=== PATIENT | male | born 1965 | race Caucasian/White ===

== ENCOUNTER 2022-05-14 12:23 | Outpatient (CLI) | payer OTHER ==
--- NOTE | 2022-05-14 14:22 | Ultrasound Report ---
PROCEDURE: Retroperitoneal INDICATIONS: RENAL FAILURE TECHNIQUE: Real-time scanning was performed of the kidneys and bladder, with image documentation. COMPARISON: None. FINDINGS: Kidneys: Kidneys are normal in size. Right kidney measures 10.7 cm long; left kidney measures 11.3 cm long. Right renal cortical thickness is 1.3 cm; left renal cortical thickness is 1.4 cm. No willi d masses, hydronephrosis, or nephrolithiasis. Small simple appearing right renal cyst measuring 0.7 c m. Simple left renal cyst measuring 1.2 cm. Bladder: Pre-void bladder volume is 312 mL. Post-void residual is 59 mL. Pre-void images demonstra te no intraluminal stones. Bladder wall has a trabeculated appearance. On pre-void images, both urete ral jets are noted with color Doppler interrogation. (Of note, ureteral jets may not be detectable i n up to 25% of cases due to insufficient differences in specific gravity between ureteral and bladder urine). Miscellaneous: No free abdominal fluid. Prostate measures 6 x 5.9 x 4.6 cm. Incidental gallbladder w all polyps. A larger polyp measuring 0.5 cm. Probable gallbladder sludge. IMPRESSION: 1. No hydronephrosis. 2. Bladder wall has a trabeculated appearance. Post void residual 59 cc. 3. Prostatomegaly. 4. Incidental gallbladder polyps. Larger polyps seen measuring is 0.5 cm. No further follow-up for th is polyp is required. Gallbladder sludge. Reviewed by: Phil Toledo MD on 05/14/2022 2:21 PM PST Approved by: Phil Toledo MD on 05/14/2022 2:21 PM PST Station ID: [id number]
== END 2022-05-14 12:24 | disposition home or self-care (01) ==
LOC: DI 12:23
PROVIDERS: ATTEND Internal Medicine Nephrology
DX: N17.9 Acute kidney failure, unspecified (principal); N40.0 Benign prostatic hyperplasia without lower urinary tract symptoms

== ENCOUNTER 2022-06-18 13:29 | Outpatient (CLI) | payer OTHER ==
--- NOTE | 2022-06-18 20:23 | XRAY Report ---
PROCEDURE: Chest 2 View X-Ray INDICATIONS: STAGE 5 CKD TECHNIQUE: 2 views of the chest were acquired. COMPARISON: X-ray chest report, 11/17/2011. FINDINGS: Surgical changes and devices: None. Lungs and pleura: Moderate left pleural effusion and left basilar compression atelectasis. On increa sed pulmonary vascularity compatible with volume overload. No pneumothorax. Mediastinum: Mediastinal contours are normal. Heart size is normal. Bones and chest wall: No suspicious bony abnormalities. Soft tissues appear unremarkable. IMPRESSION: 1. Moderate left effusion. 2. Increased pulmonary vascularity likely secondary to volume overload. Reviewed by: Tanisha Solo MD on 06/18/2022 8:22 PM PST Approved by: Tanisha Solo MD on 06/18/2022 8:22 PM PST Station ID: [id number]
== END 2022-06-18 13:30 | disposition home or self-care (01) ==
LOC: DI 13:29
PROVIDERS: ATTEND Internal Medicine Nephrology
DX: N18.5 Chronic kidney disease, stage 5 (principal); J90 Pleural effusion, not elsewhere classified; I28.8 Other diseases of pulmonary vessels

== ENCOUNTER 2023-05-28 11:38 | Outpatient (CLI) | payer MEDICARE, BC | END 2023-05-28 23:59 | disposition critical access hospital (66) | LOC: EMS 11:38 | DX: M25.552 Pain in left hip (principal); W01.0XXA Fall on same level from slipping, tripping and stumbling without subsequent striking against object, initial encounter; Y92.008 Other place in unspecified non-institutional (private) residence as the place of occurrence of the external cause | CPT/HCPCS: A0425; A0429 ==

== ENCOUNTER 2023-05-28 11:58 | Inpatient (IN) | payer MEDICARE, BC ==
[2023-05-28] MEDS ORDERED: MORPHINE 2 MG/ML CARPUJECT IVP STA (12:15)
[2023-05-28 12:42] LABS: BASOPHILS # (AUTO) 0.1 10^3/uL (0.0-0.1); EOSINOPHILS # (AUTO) 0.5 10^3/uL (0.0-0.7); EOSINOPHILS % (AUTO) 7.4 %; HCT - HEMATOCRIT 34.5 % (42.0-52.0); HGB - HEMOGLOBIN 11.2 g/dL (14.0-18.0); LYMPHOCYTES # (AUTO) 0.7 10^3/uL (1.5-3.5); LYMPHOCYTES % (AUTO) 11.1 %; MEAN CORPUSCULAR HEMOGLOBIN 29.2 pg (27.0-31.0); MEAN CORPUSCULAR HGB CONC 32.5 g/dL (32.0-36.0); MEAN CORPUSCULAR VOLUME 89.8 fL (80.0-94.0); MEAN PLATELET VOLUME 9.9 fL (7.4-11.4); MONOCYTES # (AUTO) 0.5 10^3/uL (0.0-1.0); MONOCYTES % (AUTO) 7.9 %; NEUTROPHILS # (AUTO) 4.4 10^3/uL (1.5-6.6); NEUTROPHILS % (AUTO) 72.1 %; PLT - PLATELET COUNT 322 10^3/uL (130-450); RED BLOOD COUNT 3.84 10^6/uL (4.70-6.10); RED CELL DISTRIBUTION WIDTH 15.4 % (12.0-15.0); WHITE BLOOD COUNT 6.1 x10^3/uL (4.8-10.8)
--- NOTE | 2023-05-28 12:43 | XRAY Report ---
PROCEDURE: Hip w/Pelvis 2-3V LT INDICATIONS: fall/pain TECHNIQUE: An AP view the pelvis and a frog-leg lateral views of of the hip were acquired. COMPARISON: None. FINDINGS: Bones: Mildly displaced trochanteric fracture of the left hip. Moderate left hip degenerative arthri tis. No suspicious bony lesions. Soft tissues: No suspicious soft tissue calcifications or masses. IMPRESSION: Mildly displaced trochanteric fracture of the left hip. Reviewed by: Mayur Amaya MD on 05/28/2023 12:42 PM PST Approved by: Mayur Amaya MD on 05/28/2023 12:42 PM PST Station ID: [id number]
[2023-05-28 13:01] LABS: ALBUMIN 3.1 g/dL (3.2-5.5); BILIRUBIN,TOTAL 0.3 mg/dL (0.2-1.0); CALCIUM 8.6 mg/dL (8.5-10.3); CREATININE 9.6 mg/dL (0.6-1.3); POTASSIUM 3.4 mmol/L (3.5-4.5); TOTAL PROTEIN 6.1 g/dL (6.4-8.9)
--- NOTE | 2023-05-28 13:29 | ED Physician Documentation ---
PD HPI LOWER EXT INJURY - Stated complaint Stated Complaint: L HIP/GLF - Chief complaint Chief Complaint: Trauma Ext - History obtained from History obtained from: Patient - Additional information Additional information: Patient is a 58-year-old male with a history of end-stage renal disease on peritoneal dialysis presenting for evaluation of left hip pain. The patient states that just prior to arrival he had a mechanical trip and fall over a rug at home and fell landing on his left hip. He did not hit his head. He denies LOC. He denies any symptoms prior to the fall and states that he was simply tripping over a rug. He does do his own dialysis at home daily. He does not take a blood thinner. His last p.o. intake was 8:00 this morning with a granola bar and coffee. Review of Systems Constitutional: denies: Fever Cardiac: denies: Chest pain / pressure Respiratory: denies: Dyspnea GI: denies: Abdominal Pain Musculoskeletal: reports: Extremity pain Neurologic: denies: Head injury PD PAST MEDICAL HISTORY - Past Medical History Past Medical History: Yes Cardiovascular: Hypertension Endocrine/Autoimmune: Type 2 diabetes - Past Surgical History Past Surgical History: No - Present Medications Home Medications: Ambulatory Orders Medication Instructions Recorded Confirmed Insulin Aspart (Vial) [NovoLOG] 3 - 14 units SQ BIDWM 05/30/15 05/28/23 Lisinopril 40 mg PO BID 05/30/15 05/28/23 Doxazosin [Cardura] 2 mg PO DAILY 05/28/23 05/28/23 Insulin NPH Human Isophane 15 unit SUBQ . DAILY AM 05/28/23 05/28/23 [Novolin N Flexpen] Insulin NPH Human Isophane 40 unit SUBQ .DAILY PM 05/28/23 05/28/23 [Novolin N Flexpen] amLODIPine [Norvasc] 10 mg PO DAILY 05/28/23 05/28/23 carvediloL [Coreg] 25 mg PO DAILY 05/28/23 05/28/23 - Allergies Allergies/Adverse Reactions: Allergies Allergy/AdvReac Type Severity Reaction Status Date / Time sitagliptin phosphate * Allergy Anaphylaxis Verified 05/28/23 12:09 [From Januvia] cefuroxime axetil * AdvReac Headache Verified 05/28/23 12:09 [From Ceftin] - Social History Does the pt smoke?: No Smoking Status: Never smoker Does the pt drink ETOH?: No Does the pt have substance abuse?: No - Immunizations Immunizations are current?: Yes PD ED PE NORMAL - General General: Alert and oriented X 3, No acute distress, Well developed/nourished - HEENT HEENT: Atraumatic, Moist mucous membranes, Pharynx benign - Neck Neck: Supple, no meningeal sign - Cardiac Cardiac: RRR, Strong equal pulses - Respiratory Respiratory: No respiratory distress, Clear bilaterally - Abdomen Abdomen: Soft, Non tender, Non distended - Extremities Extremities: Other (Bilateral lower extremity edema, erythema to bilateral legs, left leg is shortened and externally rotated, left hip head tenderness, distal pulses intact) - Neuro Neuro: Alert and oriented X 3, No motor deficit, No sensory deficit, Normal speech Results - Vitals Vitals: Vital Signs - 24 hr 05/28/23 05/28/23 12:05 14:09 Temperature 36.3 C L Heart Rate 71 70 Respiratory 14 16 Rate Blood Pressure 185/79 H 171/80 H O2 Saturation 100 98 Oxygen O2 Source Room air - EKG (time done) 1414 EKG releavant findings:: EKG personally interpreted by author of this note. Relevant findings are: Rate 69, normal sinus rhythm, no STEMI - Labs Labs: Laboratory Tests 05/28/23 05/28/23 12:35 12:35 WBC 6.1 RBC 3.84 L Hgb 11.2 L Hct 34.5 L MCV 89.8 MCH 29.2 MCHC 32.5 RDW 15.4 H Plt Count 322 MPV 9.9 Neut # (Auto) 4.4 Lymph # (Auto) 0.7 L [place] # (Auto) 0.5 Eos # (Auto) 0.5 Baso # (Auto) 0.1 Absolute Nucleated RBC 0.00 Nucleated RBC % 0.0 Sodium 133 L Potassium 3.4 L Chloride 92 L Carbon Dioxide 30 Anion Gap 11.0 BUN 50 H Creatinine 9.6 H* Estimated GFR (MDRD) 6 L Glucose 112 H Calcium 8.6 Total Bilirubin 0.3 AST 10 ALT 11 Alkaline Phosphatase 95 Total Protein 6.1 L Albumin 3.1 L Globulin 3.0 Albumin/Globulin Ratio 1.0 PD Medical Decision Making - ED course Complexity details: reviewed results, re-evaluated patient, d/w patient, d/w family ED course: Patient is a 58-year-old male presenting for evaluation of left hip pain after mechanical fall which occurred from tripping over a rug. No head injury. Does not take a blood thinner. Patient does have shortening of the left leg. Extremity appears to be well-perfused. X-ray which I reviewed shows a left intertrochanteric fracture. Given his history of peritoneal dialysis I did review the case with admitting hospitalist Dr. Hadley. She states that we would need to confirm with nursing managers that we will be able to accommodate this patient. ED transportation operations manager spoke with hospital nursing administration and we are able to accommodate this patient. I also reviewed the case with Dr. Billings who will plan to take the patient for surgery later this afternoon. Request hospitalist for admission. Discussed again with Dr. Hadley will admit the patient for further management. Patient was given a dose of IV morphine with improvement in his pain. Departure - Departure Disposition: [facility] DC/[facility] Clinical Impression: Closed left hip fracture, ESRD on peritoneal dialysis Condition: Stable Discharge Date/Time: 05/28/23 15:32
[2023-05-28] MEDS ORDERED: ONDANSETRON 4 MG/2 ML VIAL IVP PRN (14:26)
[2023-05-28] MEDS ORDERED: SODIUM CHLORIDE FLUSH 0.9% 10 ML SYRINGE IVP PRN (14:26)
[2023-05-28] MEDS ORDERED: ACETAMINOPHEN 325 MG TABLET PO PRN (14:26)
--- NOTE | 2023-05-28 14:35 | HISTORY & PHYSICAL EXAMINATION ---
Chief Complaint - Chief Complaint Chief Complaint: Hip pain after fall History of Present Illness - Admitted From Admitted From:: ED - History Obtained From History obtained from: ED provider and the pt - History of Present Illness HPI Comment/Other: This is a 49-year-old male with a history of diabetes and renal failure which progressed to him needing peritoneal dialysis starting August 2022. Today while walking, he tripped on a corner of a rug and fell on his left hip and developed pain. He was brought to the emergency room. Workup shows that he has a left hip fracture. Labs are relatively normal except creat of 9.6. The ER Dr contacted Ortho who said he would do hip surgery, if this peritoneal pt can be accepted here at this [facility]. Patient denies any cardiac or cerebrovascular history. He is on insulin and diabetic diet. For his peritoneal dialysis, he dwells overnight starting at 9:30 pm and then uses a dextran spacer in his abdomen during the day. 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 Living arrangement: At home Living Situation: With spouse/s.o. Social History Notes: He does not smoke and never smoked. He drinks no alcohol. He uses no illicit drugs. 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 - Substance History Use: Uses substance without health or social issues: NONE Meds/Allgy - Home Medications Home Medications: Ambulatory Orders Medication Instructions Recorded Confirmed Insulin Aspart (Vial) [NovoLOG] 3 - 14 units SQ BIDWM 05/30/15 05/28/23 Lisinopril 40 mg PO BID 05/30/15 05/28/23 Doxazosin [Cardura] 2 mg PO DAILY 05/28/23 05/28/23 Insulin NPH Human Isophane 15 unit SUBQ . DAILY AM 05/28/23 05/28/23 [Novolin N Flexpen] Insulin NPH Human Isophane 40 unit SUBQ .DAILY PM 05/28/23 05/28/23 [Novolin N Flexpen] amLODIPine [Norvasc] 10 mg PO DAILY 05/28/23 05/28/23 carvediloL [Coreg] 25 mg PO DAILY 05/28/23 05/28/23 - Allergies Allergies/Adverse Reactions: Allergies Allergy/AdvReac Type Severity Reaction Status Date / Time sitagliptin phosphate * Allergy Anaphylaxis Verified 05/28/23 12:09 [From Januvia] cefuroxime axetil * AdvReac Headache Verified 05/28/23 12:09 [From Ceftin] Review of Systems - All Other Systems All Other Systems: reports: Reviewed and negative Exam - Vital Signs Reviewed Vital Signs: Yes Vital Signs: Vital Signs x48h Temp Pulse Resp BP Pulse Ox 05/28/23 14:09 70 16 171/80 H 98 05/28/23 12:05 36.3 C L 71 14 185/79 H 100 - Physical Exam General Appearance: positive: No acute distress, Alert Eyes Bilateral: positive: Normal inspection, EOMI ENT: positive: ENT inspection nml, No signs of dehydration Neck: positive: Nml inspection, No JVD Respiratory: positive: No respiratory distress, Breath sounds nml Cardiovascular: positive: Regular rate & rhythm, No murmur Abdomen: positive: Non-tender, No organomegaly, Nml bowel sounds Skin: positive: Warm, Dry Extremities: positive: No pedal edema, Other (L hip is tender) Conclusion/Plan - Problem List (1) Hip fracture Conclusion/Plan: This occurred after a trip and fall at home, there was no near-syncope or syncope. There was no head trauma. Imaging in the ER shows he has a mildly displaced intertrochanteric fracture of the left hip Plan: Pain medications Orthopedic consult and Ortho surgery PT and OT after hip surgery Qualifiers: Laterality: left (2) Pre-operative clearance Conclusion/Plan: This patient's Revised Cardiac Risk Index = 2 points, which is a Class III risk, which gives him a 10.1% chance of having a 30-day risk of , OR or cardiac arrest Plan: A preop chest x-ray was ordered, it was not done in ER Anesthesia needs to do preop evaluation as well (3) DM type 2 (diabetes mellitus, type 2) Conclusion/Plan: The patient is on insulin at home Plan: He is n.p.o. in preparation for his hip surgery. After that he will be started on diabetic diet, sliding scale insulin with fingerstick checks, hypoglycemia protocol Check A1c with a.m. labs (4) Peritoneal dialysis status Conclusion/Plan: Patient does home peritoneal dialysis Plan: I spoke with RN Debora Norris who also spoke to RN Beatriz Morgan, that we may take a patient here, as long as he can do his own peritoneal dialysis. The aER doctor was then informed who told the patient and son at bedside, that he will have to do his own peritoneal dialysis while here and be responsible for all his own dialysate and bags and supplies on his own I then spoke to the pharmacy innovation assistant HARLEY Moreno who confirmed that the patient will need to do all his own peritoneal dialysis procedure (5) Hypertension Conclusion/Plan: Plan: The medication list is reconciled by pharmacy and all his BP meds will be resumed to use while here, holding parameters will be placed for when to not give those meds Qualifiers: Hypertension type: essential hypertension - Lab Results Fish Bones: 05/28/23 12:35 05/28/23 12:35 - Diagnostic Imaging Results Diagnostic Imaging Results: positive: Final report reviewed - Other Other Results/Comments: Attestation: The patient is expected to be hospitalized for greater than 2 midnights and is expected to be discharged or transferred to another facility within 96 hours: Yes.
[2023-05-28] MEDS ORDERED: SODIUM CHLORIDE 0.9% 1,000 ML IV SCH (15:00)
[2023-05-28] MEDS ORDERED: BUPIVACAINE 0.25% PF 30 ML VIAL ONE (15:02)
--- NOTE | 2023-05-28 15:06 | XRAY Report ---
PROCEDURE: Chest 1V INDICATIONS: Pre-op eval Hip fx, Hx HTN, DM, CKD TECHNIQUE: One view of the chest was acquired. COMPARISON: 06/18/2022 FINDINGS: Surgical changes and devices: None. Lungs and pleura: Interval improvement. Previous moderate left pleural effusion. Minimal or no left pleural fluid remains. Lungs are clear. Mediastinum: Mediastinal contours appear normal. Cardiomegaly. Bones and chest wall: No suspicious bony lesions. Overlying soft tissues appear unremarkable. IMPRESSION: 1. Cardiomegaly. 2. Significant improvement or resolution of left pleural effusion. 3. No gross infiltrates. Reviewed by: Mayur Amaya MD on 05/28/2023 3:04 PM PST Approved by: Mayur Amaya MD on 05/28/2023 3:04 PM PST Station ID: [id number]
[2023-05-28] MEDS: SODIUM CHLORIDE FLUSH 0.9% 10 ML SYRINGE IVP SCH (15:49)
[2023-05-28] MEDS: DEXTROSE 5%-0.9% NACL 1,000 ML IV SCH (15:50)
[2023-05-28] MEDS: MORPHINE 2 MG/ML CARPUJECT IVP PRN ×2 (15:53→21:29)
--- NOTE | 2023-05-28 16:36 | CONSULTATION NOTE ---
Referring Provider Consult Date: 05/28/23 History of Present Illness - History of Present Illness HPI Comment/Other: Mr. Bryce Berman is a 58-year-old male diabetic with end-stage renal disease who is being evaluated for a left intertrochanteric hip fracture sustained after a ground-level fall this afternoon. Patient was in his usual state of health when he slipped on a loose rug in his home and fell onto his left hip. Noted immediate pain in his hip region and was unable to stand or weight-bear. Was taken to the emergency room by ambulance where x-rays showed his hip fracture. Patient is an insulin-dependent diabetic and has been on daily nightly peritoneal dialysis for his chronic renal failure. Patient denies of loss of consciousness nausea vomiting or other injuries as a result of his fall. No prior hip fractures. History - Past Medical History Cardiovascular: reports: Hypertension Endocrine/Autoimmune: reports: Type 2 diabetes : reports: Dialysis, Renal insuffiency - Family & Social History Living arrangement: At home - Substance History Use: Uses substance without health or social issues: NONE Meds/Allgy - Home Medications Home Medications: Ambulatory Orders Medication Instructions Recorded Confirmed Insulin Aspart (Vial) [NovoLOG] 3 - 14 units SQ BIDWM 05/30/15 05/28/23 Lisinopril 40 mg PO BID 05/30/15 05/28/23 Doxazosin [Cardura] 2 mg PO DAILY 05/28/23 05/28/23 Insulin NPH Human Isophane 15 unit SUBQ . DAILY AM 05/28/23 05/28/23 [Novolin N Flexpen] Insulin NPH Human Isophane 40 unit SUBQ .DAILY PM 05/28/23 05/28/23 [Novolin N Flexpen] amLODIPine [Norvasc] 10 mg PO DAILY 05/28/23 05/28/23 carvediloL [Coreg] 25 mg PO DAILY 05/28/23 05/28/23 - Allergies Allergies/Adverse Reactions: Allergies Allergy/AdvReac Type Severity Reaction Status Date / Time sitagliptin phosphate * Allergy Anaphylaxis Verified 05/28/23 12:09 [From Januvia] cefuroxime axetil * AdvReac Headache Verified 05/28/23 12:09 [From Ceftin] Exam - Vital Signs Vital Signs: Vital Signs x48h Temp Pulse Pulse Resp BP BP Pulse Ox 05/28/23 15:33 37.1 C 69 16 171/80 H 96 05/28/23 14:09 70 16 171/80 H 98 05/28/23 12:05 36.3 C L 71 14 185/79 H 100 - Physical Exam Comments/Other: Examination: Patient had 2+ tenderness on palpation of the lateral aspect of his left hip. His left leg was slightly shortened and externally rotated. Movement of his hip was painful. Patient moves his toes on command. Sensation. Be grossly intact to light touch. X-rays: X-rays taken in the emergency room shows a minimally displaced inter trochanteric left hip fracture Conclusion and Plan - Lab Results Laboratory Results 05/28/23 12:35: Sodium 133 L, Potassium 3.4 L, Chloride 92 L, Carbon Dioxide 30, Anion Gap 11.0, BUN 50 H, Creatinine 9.6 H*, Estimated GFR (MDRD) 6 L, Glucose 112 H, Calcium 8.6, Total Bilirubin 0.3, AST 10, ALT 11, Alkaline Phosphatase 95, Total Protein 6.1 L, Albumin 3.1 L, Globulin 3.0, Albumin/Globulin Ratio 1.0 05/28/23 12:35: WBC 6.1, RBC 3.84 L, Hgb 11.2 L, Hct 34.5 L, MCV 89.8, MCH 29.2, MCHC 32.5, RDW 15.4 H, Plt Count 322, MPV 9.9, Neut # (Auto) 4.4, Lymph # (Auto) 0.7 L, [place] # (Auto) 0.5, Eos # (Auto) 0.5, Baso # (Auto) 0.1, Absolute Nucleated RBC 0.00, Nucleated RBC % 0.0 - Diagnosis Diagnosis: Closed left intertrochanteric hip fracture - Plan Plan: Patient was admitted to the medical service. He has been cleared medically to proceed with surgical stabilization of his left hip fracture. Has not eaten since early this morning. Have scheduled in for surgery this evening. Will plan on doing short InterTAN nailing of this hip fracture.The risk and benefits of surgery were explained to the patient. I have answered all his questions. He wishes to proceed with surgery as planned. Leg has been marked
--- NOTE | 2023-05-28 17:16 | CONSULTATION NOTE ---
Consultation Report: Called to evaluate patient for hip pinning s/p hip fracture. Patient is on peritoneal dialysis and managed at home. While patient is euvolemic now, it is expected he would have intra-op fluid shifts and would need intraoperative fluids. There would be expected blood loss and a potential for electrolyte imbalances. Even with spinal anesthesia there would be need for fluid management due to sympathectomy. Without nephrology available, if he were to need support, [facility] would not be able to provide that. Recommend transfer to facility with nephrology available.
--- NOTE | 2023-05-28 17:18 | PROVIDER PROGRESS NOTE ---
Hospitalist Cross-cover Note - Cross-Cover Note Cross-Cover Note: I spoke to the orthopedic surgeon and we discussed that the patient is stable, euvolemic and can go to surgery today. Dr. Billings, of orthopedics, called in anesthesia and the OR team. The anesthesia provider on-call, Shemar Kessler, evaluated this patient. She came to talk to me and Dr. Billings together. Anesthesia stated that this patient is too high risk to put under anesthesia here because of fluid shifts that can be hard to manage and unknown what types of anesthetics are not well renally handled. Therefore the patient needs to be transferred to a facility that has a Commercial Loan Analyst, she stated. Plan: The ortho surgery will be canceled The patient will no longer be n.p.o. I will order a diet I will put him on Lovenox for DVT prophylaxis I will start arranging for transfer to a larger facility.
[2023-05-28] MEDS ORDERED: ENOXAPARIN 40 MG/0.4 ML SYRINGE SUBQ SCH (17:20)
--- NOTE | 2023-05-28 17:55 | PHARMACY PROGRESS NOTE ---
- Best Possible Medication History Admit Date and Time: 05/28/23 1426 Processed by: Pharmacy Medication History completed: Yes Patient Interview: Completed Secondary Source(s): Physician records, Pharmacy records, Insurance records As the person ultimately responsible for medication therapy, providers are able to order a medication from an existing home medication list in [facility] via the "Reconcile Routine" prior to Confirmation of that medication by business support administrator. Such practice is discouraged except when the physician, in their clinical judgment, deems that a medical need exists for a medication without regard to previous use.
[2023-05-28] MEDS: lisinopriL 20 MG TABLET PO SCH (21:28)
[2023-05-28] MEDS: carvediloL 12.5 MG TABLET PO SCH (21:29)
[2023-05-28] MEDS: HEPARIN 5,000 UNIT/ML VIAL SUBQ SCH (21:35)
[2023-05-28] MEDS: INSULIN LISPRO 300 UNIT/3 ML PEN SUBQ SCH (21:35)
[2023-05-29] MEDS: SODIUM CHLORIDE FLUSH 0.9% 10 ML SYRINGE IVP SCH ×2 (00:08→11:41)
[2023-05-29] MEDS: MORPHINE 2 MG/ML CARPUJECT IVP PRN ×3 (03:00→13:04)
[2023-05-29] MEDS: DEXTROSE 5%-0.9% NACL 1,000 ML IV SCH (03:04)
[2023-05-29] MEDS: INSULIN LISPRO 300 UNIT/3 ML PEN SUBQ SCH ×2 (07:57→11:37)
[2023-05-29] MEDS ORDERED: [UNRECOGNIZED DRUG - OTHER] SUBQ SCH ×2 (08:00)
[2023-05-29] MEDS ORDERED: INSULIN NPH HUMAN ISOPHANE 100 UNIT/ML SUBQ SCH ×2 (08:00)
[2023-05-29] MEDS ORDERED: INSULN SUBQ SCH ×2 (08:00)
[2023-05-29] MEDS: DOXAZOSIN 1 MG TABLET PO SCH ×2 (08:21→08:30)
[2023-05-29] MEDS: HEPARIN 5,000 UNIT/ML VIAL SUBQ SCH (08:24)
[2023-05-29] MEDS: carvediloL 12.5 MG TABLET PO SCH (08:30)
[2023-05-29] MEDS ORDERED: INSULIN GLARGINE-YFGN 300 UNIT/3 ML PEN SUBQ SCH ×3 (09:00→21:00)
[2023-05-29] MEDS ORDERED: amLODIPine 5 MG TABLET PO SCH (09:00)
[2023-05-29 10:28] LABS: ESTIMATED AVERAGE GLUCOSE 194 mg/dL (70-100); HEMOGLOBIN A1c% 8.4 % (4.27-6.07)
--- NOTE | 2023-05-29 10:31 | Discharge Plan ---
Discharge Plan Problem Reviewed?: Yes Disposition: 02 Transfer Acute Care Hosp Condition: Fair No Smoking: If you smoke, Please STOP! Call for help.
--- NOTE | 2023-05-29 10:52 | DISCHARGE SUMMARY ---
"Discharge Summary Admit Date: 05/28/23 Discharge Date: 05/29/23 Discharging Provider: Dr Vivi Hadley Primary Care Provider: Dr Davion Lopez Code Status: Attempt Resuscitation Condition at Discharge: Fair Discharge Disposition: 02 Transfer Acute Care Hosp Discharge Facility Name: [facility] - DIAGNOSES Admission Diagnoses: (1) Hip fracture Left sided (2) Pre-operative clearance This patient's Revised Cardiac Risk Index = 2 points, which is a Class III risk, which gives him a 10.1% chance of having a 30-day risk of , [place] or cardiac arrest (3) DM type 2 (diabetes mellitus, type 2) (4) Peritoneal dialysis status (5) Hypertension Discharge Diagnoses with Status of Each Condition: (1) Hip fracture, left Surgery was not done here due to #3 (2) Pre-operative clearance He was seen by Hospitalist and by Anesthesia for pre-op clearance (3) At high risk for postoperative complications - Z91.89 Per Anesthesia, he is at excessively high risk to have his surgery done here at a [facility], and needs surgery at a facility with Automatic Drilling Machine Operator on staff. The Hospitalist needed to reach out to various hospitals to have him accepted in transfer (Time spent: 45 minutes). He was transferred in stable condition by BLS ambulance. (4) DM type 2 (diabetes mellitus, type 2) Stable (5) Peritoneal dialysis status Stable (6) CKD Stable (7) Hypertension Stable on meds - HPI History of Present Illness: This is a 49-year-old male with a history of diabetes and renal failure which progressed to him needing peritoneal dialysis starting August 2022. Today while w alking, he tripped on a corner of a rug and fell on his left hip and developed pain. He was brought to the emergency room. Workup shows that he has a left hip fracture. Labs are relatively normal except creat of 9.6. The ER Dr contacted Ortho who said he would do hip surgery, if this peritoneal patient can be [facility]. Patient denies any cardiac or cerebrovascular history. He is on insulin and diabetic diet. For his peritoneal dialysis, he dwells overnight starting at 9:30 pm and then uses Dextran in his abdomen during the day. His CODE STATUS is Full Code - CONSULTS | PROCEDURES Consultations: Ortho, Anesthesia - HOSPITAL COURSE Hospital Course: This Hospitalist spoke to the Orthopedic surgeon and we discussed that the patient is stable, euvolemic and can go to surgery today. Dr. Billings, of Orthopedics, called in Anesthesia and the OR team with plan to go to PO at 1800. The Anesthesia provider on-call, Shemar Kessler, evaluated this patient. Anesthesia stated that this patient is too high risk to put under anesthesia here because of fluid shifts that can be hard to manage and unknown what types of anesthetics are not well renally handled. Therefore the patient needs to be transferred to a facility that has a Automatic Drilling Machine Operator, she stated. The orthopedic surgery was canceled. The patient was taken off of n.p.o. status, a diabetic diet was ordered. He was started on Heparin sq BID for DVT prophylaxis. Arrangements were made for transferring him to a larger facility. - ALLERGIES Allergies/Adverse Reactions: Allergies Allergy/AdvReac Type Severity Reaction Status Date / Time sitagliptin phosphate * Allergy Anaphylaxis Verified 05/28/23 12:09 [From Januvia] cefuroxime axetil * AdvReac Headache Verified 05/28/23 12:09 [From Ceftin] - MEDICATIONS Home Medications: Ambulatory Orders Medication Instructions Recorded Confirmed Insulin Aspart (Vial) [NovoLOG] 3 - 14 units SQ BIDWM 05/30/15 05/28/23 Lisinopril 40 mg PO DAILY 05/30/15 05/28/23 Calcium Acetate [Phoslo] 667 mg PO TIDWM 05/28/23 05/28/23 Insulin NPH Human Isophane 15 unit SUBQ . DAILY AM 05/28/23 05/28/23 [Novolin N Flexpen] Insulin NPH Human Isophane 40 unit SUBQ DAILY PM 05/28/23 05/28/23 [Novolin N Flexpen] Rosuvastatin Calcium [Crestor] 5 mg PO QPM 05/28/23 05/28/23 amLODIPine [Norvasc] 10 mg PO DAILY 05/28/23 05/28/23 carvediloL [Coreg] 25 mg PO DAILY 05/28/23 05/28/23 - PHYSICAL EXAM AT DISCHARGE General Appearance: positive: No acute distress, Alert Eyes Bilateral: positive: Normal inspection, EOMI ENT: positive: ENT inspection nml, No signs of dehydration Neck: positive: Nml inspection, No JVD Respiratory: positive: No respiratory distress, Breath sounds nml Cardiovascular: positive: Regular rate & rhythm, No murmur Peripheral Pulses: positive: 2+ Abdomen: positive: Non-tender, Nml bowel sounds Skin: positive: Warm, Dry Extremities: positive: No pedal edema Neurologic/Psychiatric: positive: Oriented x3, CN's nml (2-12), Motor nml - LABS Result Diagrams: 05/28/23 12:35 05/28/23 12:35 - DIAGNOSTIC IMAGING Diagnostic Imaging Results: Final report reviewed - FOLLOW UP Follow Up: This will be determined after his hospitalization at [facility]. - TIME SPENT Time Spent in Discharge (Minutes): 45"
[2023-05-29 11:38] VITALS: BP 160/73; O2SAT 94
[2023-05-29] MEDS: lisinopriL 20 MG TABLET PO SCH (11:41)
[2023-05-29] MEDS ORDERED: oxyCODONE 5 MG TABLET PO STA (12:29)
== END 2023-05-29 13:12 | disposition short-term general hospital (02) | DRG 535 ==
LOC: EDUNIT# → ED 11:58 → MS2 14:26
PROVIDERS: ADMIT Internal Medicine; ATTEND Internal Medicine
DX: S72.142A Displaced intertrochanteric fracture of left femur, initial encounter for closed fracture (principal); N18.6 End stage renal disease; I12.0 Hypertensive chronic kidney disease with stage 5 chronic kidney disease or end stage renal disease; W01.0XXA Fall on same level from slipping, tripping and stumbling without subsequent striking against object, initial encounter; Y92.009 Unspecified place in unspecified non-institutional (private) residence as the place of occurrence of the external cause; E11.22 Type 2 diabetes mellitus with diabetic chronic kidney disease; Z99.2 Dependence on renal dialysis; Z79.4 Long term (current) use of insulin; M16.12 Unilateral primary osteoarthritis, left hip; Z86.16 Personal history of COVID-19
CPT/HCPCS: 36415; 71045; 73502; 80053; 83036; 85025; 87635; 93005; 96374; 99285; A9270; J1815

== ENCOUNTER 2023-07-24 10:17 | Outpatient (CLI) | payer MEDICARE, BC ==
[2023-07-24 12:26] LABS: PT - PROTHROMBIN TIME 102.9 secs (9.9-12.6)
[2023-07-24 12:35] LABS: INR > 10.0 (0.8-1.2)
== END 2023-07-24 10:18 | disposition home or self-care (01) ==
LOC: LAB.N 10:17
PROVIDERS: ATTEND Physician Assistant
DX: E11.9 Type 2 diabetes mellitus without complications (principal); R31.21 Asymptomatic microscopic hematuria; Z79.01 Long term (current) use of anticoagulants
CPT/HCPCS: 36415; 80053; 80061; 81001; 81003; 82043; 82570; 83036; 83721; 85025; 85610; 87086

== ENCOUNTER 2023-07-27 08:32 | Outpatient (CLI) | payer MEDICARE, BC | END 2023-07-27 23:59 | disposition short-term general hospital (02) | LOC: EMS 08:32 | DX: R07.89 Other chest pain (principal); Z99.2 Dependence on renal dialysis | CPT/HCPCS: A0425; A0427 ==

== ENCOUNTER 2023-08-03 08:00 | Outpatient (CLI) | payer MEDICARE, MEDICAID | END 2023-08-03 08:01 | disposition home or self-care (01) | LOC: LAB.WCP 08:00 | PROVIDERS: ATTEND Physician Assistant | DX: I48.0 Paroxysmal atrial fibrillation (principal); Z79.01 Long term (current) use of anticoagulants ==

== ENCOUNTER 2023-08-19 08:00 | Outpatient (CLI) | payer MEDICARE, MEDICAID | END 2023-08-19 08:01 | disposition home or self-care (01) | LOC: LAB.WCP 08:00 | PROVIDERS: ATTEND Physician Assistant | DX: I48.0 Paroxysmal atrial fibrillation (principal); Z79.01 Long term (current) use of anticoagulants ==

== ENCOUNTER 2023-08-31 14:51 | Outpatient (CLI) | payer MEDICARE, MEDICAID | END 2023-08-31 22:09 | disposition short-term general hospital (02) | LOC: EMS 14:51 | DX: E11.65 Type 2 diabetes mellitus with hyperglycemia (principal); R41.82 Altered mental status, unspecified; R11.10 Vomiting, unspecified; R47.81 Slurred speech; Z79.4 Long term (current) use of insulin; Z99.2 Dependence on renal dialysis | CPT/HCPCS: A0425; A0429 ==

== ENCOUNTER 2023-09-25 08:00 | Outpatient (CLI) | payer MEDICARE, MEDICAID | END 2023-09-25 08:01 | disposition home or self-care (01) | LOC: LAB.F 08:00 | PROVIDERS: ATTEND Specialist | DX: I21.4 Non-ST elevation (NSTEMI) myocardial infarction (principal); Z79.01 Long term (current) use of anticoagulants; I48.0 Paroxysmal atrial fibrillation ==

== ENCOUNTER 2023-10-02 08:00 | Outpatient (CLI) | payer MEDICARE, MEDICAID | END 2023-10-02 23:59 | disposition home or self-care (01) | LOC: LAB.WCP 08:00 | PROVIDERS: ATTEND Physician Assistant | DX: I21.4 Non-ST elevation (NSTEMI) myocardial infarction (principal); I48.0 Paroxysmal atrial fibrillation; Z79.01 Long term (current) use of anticoagulants ==

== ENCOUNTER 2023-10-16 08:00 | Outpatient (CLI) | payer MEDICARE, MEDICAID | END 2023-10-16 23:59 | disposition home or self-care (01) | LOC: LAB.WCP 08:00 | PROVIDERS: ATTEND Physician Assistant | DX: I48.0 Paroxysmal atrial fibrillation (principal) ==

== ENCOUNTER 2023-11-20 08:00 | Outpatient (CLI) | payer MEDICARE, MEDICAID | END 2023-11-20 23:59 | disposition home or self-care (01) | LOC: LAB.N 08:00 | PROVIDERS: ATTEND Physician Assistant | DX: I21.4 Non-ST elevation (NSTEMI) myocardial infarction (principal); I48.0 Paroxysmal atrial fibrillation; Z79.01 Long term (current) use of anticoagulants ==

== ENCOUNTER 2023-12-21 11:05 | Outpatient (CLI) | payer MEDICARE, MEDICAID ==
--- NOTE | 2023-12-24 22:11 | XRAY Report ---
PROCEDURE: Hip w/Pelvis 2-3V LT INDICATIONS: NONDISPLACED INTERTROCHANTERIC FX L FEMUR TECHNIQUE: 3 views of the hip were acquired. COMPARISON: Prior hip series dated May 28, 2023 FINDINGS: Bones: Prior ORIF of left intertrochanteric hip fracture where intramedullary adrianna, proximal dynamic hip screw is identified and in expected position. The distal aspect of the hardware is not fully visu alized. Hip joint degeneration. Bones are osteopenic. Soft tissues: No suspicious soft tissue calcifications or masses. PD catheter present and tip coil ed over the pelvis. IMPRESSION: Expected alignment status post ORIF of previously noted left intratrochanteric hip fracture and the s urgical hardware is not completely visualized distally. Reviewed by: BRODERICK Reyes on 12/24/2023 10:10 PM PDT Approved by: Varsha Liang MD on 12/24/2023 10:10 PM PDT Station ID: [id number]
== END 2023-12-21 11:06 | disposition home or self-care (01) ==
LOC: DI 11:05
PROVIDERS: ATTEND Orthopaedic Surgery
DX: S72.145D Nondisplaced intertrochanteric fracture of left femur, subsequent encounter for closed fracture with routine healing (principal)

== ENCOUNTER 2023-12-30 08:00 | Outpatient (CLI) | payer MEDICARE, MEDICAID | END 2023-12-30 23:59 | disposition home or self-care (01) | LOC: LAB.WCP 08:00 | PROVIDERS: ATTEND Physician Assistant | DX: I48.0 Paroxysmal atrial fibrillation (principal); Z79.01 Long term (current) use of anticoagulants ==

== ENCOUNTER 2024-01-08 08:00 | Outpatient (CLI) | payer MEDICARE, MEDICAID | END 2024-01-08 23:59 | disposition home or self-care (01) | LOC: LAB.N 08:00 | PROVIDERS: ATTEND Physician Assistant | DX: I48.0 Paroxysmal atrial fibrillation (principal); Z79.01 Long term (current) use of anticoagulants ==

== ENCOUNTER 2024-01-25 08:00 | Outpatient (CLI) | payer MEDICARE, MEDICAID | END 2024-01-25 23:59 | disposition home or self-care (01) | LOC: LAB.N 08:00 | PROVIDERS: ATTEND Physician Assistant | DX: I21.4 Non-ST elevation (NSTEMI) myocardial infarction (principal); I48.0 Paroxysmal atrial fibrillation; Z79.01 Long term (current) use of anticoagulants ==